=== PATIENT | female | born 1980 | race Caucasian/White ===

== ENCOUNTER 2024-08-19 15:26 | Emergency (ER) | payer OTHER, SELFPAY ==
[2024-08-19] VITALS (17 sets, daily range): BP systolic 107–156; BP diastolic 76–109; PULSE 82–108; TEMP 37; O2SAT 90–100; BMI 24.0
--- NOTE | 2024-08-19 15:44 | ED.CHESTPAI1 ---
HPI - Chest Pain General Chief Complaint: Chest Pain Stated Complaint: Chest Pain Time Seen by Provider: 08/19/24 15:33 Source: patient Mode of arrival: walk-in Limitations: no limitations History of Present Illness HPI narrative: Patient is a very pleasant 44-year-old female who presents to the emergency department secondary to chest pain. The chest pain is located on the left upper quadrant. It is dull. It is constantly there. It does not radiate. It is 4 out of 10. Palpating does not make it worse. Nothing makes it better. She has not taken anything for the pain. She has no history of injury. No documented coronary artery disease. She does not have high blood pressure, high cholesterol, or diabetes. She is a smoker. Patient does not have any family medical history of any cardiac disease under the age of 50. Patient states that she does have associated shortness of breath. She states that there is some nausea and diaphoresis but the nausea and diaphoresis seem to come in waves. Preceding this episode it has been constant over the last 2 days, the patient has not had any exertional chest pain or shortness of breath. The patient has not had any fever or chills. No cough, cold, flulike symptoms. The patient has a history of superficial venous thrombosis but never has had a deep vein thrombosis. She is never had to be on blood thinners. She does not have any recent history of trauma to the legs. No recent surgeries or immobilization. Patient has not had any recent diagnosis of COVID. No long car ride or airplane travel. No control. No estrogen Supplementation. Risk Factors Coronary artery disease risk factors: smoking history Thoracic aortic dissection risk factors: none Related Data On Oral Contraceptives: No Home Medications ?Medication ?Instructions ?Recorded ?Confirmed No Known Home Medications 08/19/24 08/19/24 Allergies Allergy/AdvReac Type Severity Reaction Status Date / Time No Known Drug Allergies Allergy Verified 08/19/24 15:37 Review of Systems ROS Narrative 10 Systems were reviewed, and unless noted in the HPI, all other systems are reviewed, unremarkable, or noncontributory. 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 Prior to touching the patient, I asked for consent to examine the patient.? General: Alert and oriented, well nourished, mild distress. Eye: PERRL, EOMI, normal conjunctiva. HENT: Normocephalic, normal hearing, moist oral mucosa, no scleral icterus, no sinus tenderness. Neck: Supple, non-tender, no carotid bruits, no JVD, no lymphadenopathy. Lungs: Clear to auscultation and percussion, non-labored respiration. Heart: Normal rate, regular rhythm, no murmur, gallop or edema. Abdomen: Soft, non-tender, non-distended, normal bowel sounds, no masses. Musculoskeletal: Normal range of motion and strength, no tenderness or swelling. Skin: Skin is warm, dry and pink, no rashes or lesions. Neurologic: Awake, alert, and oriented X3, CN II-XII intact. Psychiatric: Cooperative, appropriate mood and affect.? Following the conclusion of the examination, I have washed my hands thoroughly after removing examination gloves. Constitutional Vital Signs, click to edit/add: Last Vital Signs Temp 98.6 F 08/19/24 15:37 Pulse 101 H 08/19/24 15:37 Resp 18 08/19/24 15:37 BP 156/99 H 08/19/24 15:37 Pulse Ox 100 08/19/24 15:37 O2 Del Method Room Air 08/19/24 15:37 Course Course Hospital Course: The patient was observed in our emergency department. She had no ectopy or arrhythmia on the monitor. CBC showed no evidence of any Neurologic: Ptosis present. Marked will get patient opponent was undetectable and she has had contiguous pain. The, I do not think that this is cardiac chest pain. Could be anxiety but the patient does not seem overtly anxious. It is definitely not a PE, pneumonia, acute coronary syndrome or pneumothorax. Reevaluation(s) Reevaluation #1: Discussed the results with the patient. Time: 17:29 Vital Signs Vital signs: Vital Signs Temperature 98.6 F 08/19/24 15:37 Pulse Rate 101 H 08/19/24 15:37 Respiratory Rate 18 08/19/24 15:37 Blood Pressure 156/99 H 08/19/24 15:37 Pulse Oximetry 100 08/19/24 15:37 Oxygen Delivery Method Room Air 08/19/24 15:37 Temperature 98.6 F 08/19/24 15:37 Pulse Rate 101 H 08/19/24 15:37 Respiratory Rate 18 08/19/24 15:37 Blood Pressure 156/99 H 08/19/24 15:37 Pulse Oximetry 100 08/19/24 15:37 Oxygen Delivery Method Room Air 08/19/24 15:37 MDM - Chest Pain MDM Narrative Medical decision making narrative: Is a 44-year-old female who presents to the emergency department with chest pain for 2 to 3 days. There was no additional historian for this patient Follow-up with her primary medical physician. If her symptoms worsen or change in quality or characteristics and they need to return to the emergency department for further evaluation and care. At this time she is considered a low risk cardiac patient and is stable to go home. Differential Diagnosis Differential diagnosis: Likely fracture of rib, pneumothorax, stable angina, unstable angina pectoris, atypical chest pain, st elevation myocardial infarction, costochondritis, chest pain and biliary colic Medical Records Data Attestation: I reviewed the patient's medical records. Lab Data Attestation: I reviewed the patient's lab results. Labs: Lab Results 08/19/24 Range/Units 16:05 WBC 7.4 (4.0-11.0) 10^3/uL RBC 4.91 (4.20-5.40) 10^6/uL Hgb 15.4 (12.0-16.0) g/dL Hct 44.2 (36.0-48.0) % MCV 90.0 (81.0-99.0) fL MCH 31.4 (26.7-34.0) pg MCHC 34.8 (29.9-35.2) g/dL RDW 11.9 (11.0-15.0) % Plt Count 261 (150-450) 10^3/uL MPV 9.6 (9.5-13.5) fL Neut % (Auto) 53.8 (43.0-75.0) % Lymph % (Auto) 32.0 (20.5-60.0) % [place] % (Auto) 4.9 (1.7-12.0) % Eos % (Auto) 8.0 H (0.9-7.0) % Baso % (Auto) 1.0 (0.2-2.0) % Neut # (Auto) 4.0 (1.4-6.5) 10^3/uL Lymph # (Auto) 2.4 (1.2-3.8) 10^3/uL [place] # (Auto) 0.4 (0.3-0.8) 10^3/uL Eos # (Auto) 0.6 (0.0-0.7) 10^3/uL Baso # (Auto) 0.1 (0.0-0.1) 10^3/uL Abs Immat Gran (auto) 0.02 (0.00-0.03) 10^3/uL Imm/Tot Granulo (auto) 0.3 (0.0-0.5) % Sodium 139 (136-145) mmol/L Potassium 3.5 (3.5-5.1) mmol/L Chloride 104 (98-107) mmol/L Carbon Dioxide 26.3 (21.0-32.0) mmol/L Anion Gap 12.2 BUN 11.0 (7.0-18.0) mg/dL Creatinine 0.81 (0.55-1.02) mg/dL Est GFR ( Amer) >60 (>=60 mL/min/1.73m^2) Est GFR (Non-Af Amer) >60 (>=60 mL/min/1.73m^2) BUN/Creatinine Ratio 13.6 Glucose 101 (74-106) mg/dL Calcium 8.8 (8.5-10.1) mg/dL Total Bilirubin 0.3 (0.2-1.0) mg/dL AST 23 (15-37) U/L ALT 29 (14-59) U/L Alkaline Phosphatase 51 (46-116) U/L Troponin I High Sens <4.0 L (4.0-51.3) pg/mL Total Protein 7.8 (6.4-8.2) g/dL Albumin 4.2 (3.4-5.0) g/dL Globulin 3.6 g/dL Albumin/Globulin Ratio 1.2 ECG Data Attestation: I personally reviewed and interpreted this ECG as follows: (Rhythm with a rate of 97. WA interval and QRS duration are normal. QTc is not prolonged. There is evidence of a right bundle branch block.) ECG interpretation date: 08/19/24 ECG interpretation time: 15:45 Prior ECG tracings: not available for review Heart Score History: Slightly/Non-Suspicious ECG: Normal Age: <45 years Risk Factors: 1 or 2 Risk Factors (smoking) Troponin: <Normal Limit Total Heart Score Recommendations & Risks:: 1 Discharge Plan Discharge Chief Complaint: Chest Pain Clinical Impression: Chest pain Patient Disposition: Home, Self-Care Time of Disposition Decision: 17:32 Condition: Good Prescriptions / Home Meds: No Action No Known Home Medications Print Language: Mosotho Instructions: Chest Pain (ED) Referrals: EMILY SULLIVAN [Primary Care Provider] - 1 week
--- NOTE | 2024-08-19 16:01 | ECG_ITS ---
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
--- NOTE | 2024-08-19 16:04 | ECG_ITS ---
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
--- NOTE | 2024-08-19 16:05 | CT_ITS ---
The [address] [address] Patient Name: TRINITY HAWKINS MRN: [id number] date: 1980 Sex: F Assigned Patient Location: ER Current Patient Location: ER Accession/Order Number: [id number] Exam Date: 08/19/2024 16:30 Report Date: 08/19/2024 16:57 At the request of: MARTY MANJARREZ Procedure: CT angio chest EXAM: CT pulmonary angiogram of the chest using 100 mL of IV iodinated contrast. 3-D imaging was performed. Dose reduction technique used: Automated exposure control and/or adjustment of the mA and/or kV according to patient size and/or use of iterative reconstruction technique. REASON FOR EXAM: rule out PE COMPARISON: None FINDINGS: No pulmonary emboli. No aortic dissection. No pneumothorax. No acute airspace opacities. No pleural effusion. No acute fractures. No concerning pulmonary nodules. No definite lymphadenopathy in the chest. Remainder unremarkable. CT/CT angio chest IMPRESSION: No pulmonary embolism or acute abnormalities in chest. Electronically authenticated by: JORGE VASQUEZ Date: 08/19/2024 16:57
[2024-08-19 16:14] LABS: Basophils Absolute Auto 0.1 10^3/uL (0.0-0.1); Eosinophils Absolute Auto 0.6 10^3/uL (0.0-0.7); Hematocrit 44.2 % (36.0-48.0); Hemoglobin 15.4 g/dL (12.0-16.0); Immature Granulocytes Abs Auto 0.02 10^3/uL (0.00-0.03); Immature Granulocytes Pct Auto 0.3 % (0.0-0.5); Lymphocytes Absolute Auto 2.4 10^3/uL (1.2-3.8); Mean Corpuscular HGB Conc 34.8 g/dL (29.9-35.2); Mean Corpuscular Hemoglobin 31.4 pg (26.7-34.0); Mean Platelet Volume 9.6 fL (9.5-13.5); Monocytes Absolute Auto 0.4 10^3/uL (0.3-0.8); Monocytes Percent Auto 4.9 % (1.7-12.0); Neutrophils Percent Auto 53.8 % (43.0-75.0); Platelet Count 261 10^3/uL (150-450); Red Blood Count 4.91 10^6/uL (4.20-5.40); Red Cell Distribution Width 11.9 % (11.0-15.0); White Blood Count 7.4 10^3/uL (4.0-11.0)
[2024-08-19 16:31] LABS: Alanine Aminotransferase 29 U/L (14-59); Albumin Globulin Ratio 1.2; Albumin Level 4.2 g/dL (3.4-5.0); Alkaline Phosphatase 51 U/L (46-116); Anion Gap 12.2; Aspartate Amino Transferase 23 U/L (15-37); BUN Creatinine Ratio 13.6; Bilirubin Total 0.3 mg/dL (0.2-1.0); Calcium 8.8 mg/dL (8.5-10.1); Carbon Dioxide 26.3 mmol/L (21.0-32.0); Chloride 104 mmol/L (98-107); Estimated GFR (African America >60 (>=60 mL/min/1.73m^2); Estimated GFR (Non-African Ame >60 (>=60 mL/min/1.73m^2); Globulin 3.6 g/dL; Glucose 101 mg/dL (74-106); Potassium 3.5 mmol/L (3.5-5.1); Sodium 139 mmol/L (136-145); Total Protein 7.8 g/dL (6.4-8.2); Troponin I High Sensitivity <4.0 pg/mL (4.0-51.3)
[2024-08-19] MEDS: KETOROLAC TROMETHAMINE 30 MG/ML VIAL 15 MG IVP (17:41)
== END 2024-08-19 17:55 | disposition home or self-care (01) ==
PROVIDERS: Emergency Provider Emergency Medicine; Family Provider Family Medicine; PCP Family Medicine
DX: R07.9 Chest pain, unspecified (principal)
CPT/HCPCS: 36415; 71275; 80053; 84484; 85025; 93005; 96374; 99285; J1885; Q9967